=== PATIENT | male | born 1990 | race Caucasian/White ===

== ENCOUNTER 2018-06-16 12:00 | Emergency (ER) | payer SELFPAY ==
[~2018-06-16] VITALS: Ht 182.9 cm; Wt 103.4 kg
[~2018-06-16 12:00] MED LIST: ALB2T
[2018-06-16 12:15] VITALS: BP 130/93
[2018-06-16] MEDS: KETOROLAC TROMETH 60MG/2ML VIAL IM ONE (14:19)
== END 2018-06-16 14:51 | disposition home or self-care (01) ==
LOC: ER 12:00
CPT/HCPCS: 72100 ×2; 96372 ×2; 99283; J1885 ×2

== ENCOUNTER 2020-03-27 18:11 | Emergency (ER) | payer MEDICAID ==
[~2020-03-27] VITALS: Ht 185.4 cm; Wt 113.4 kg
[2020-03-27 18:26] VITALS: BP 141/81
[2020-03-27] MEDS ORDERED: KETOROLAC TROMETH 60MG/2ML VIAL IM ONE (20:15)
== END 2020-03-27 21:14 | disposition home or self-care (01) ==
LOC: ER 18:11
DX: S06.0X0A Concussion without loss of consciousness, initial encounter (principal); W22.8XXA Striking against or struck by other objects, initial encounter; Y93.89 Activity, other specified; Y92.89 Other specified places as the place of occurrence of the external cause; Y99.8 Other external cause status
CPT/HCPCS: 70450; 72125; 96372; 99285; J1885

== ENCOUNTER 2021-05-15 15:56 | Emergency (ER) | payer MEDICAID, OTHER ==
[~2021-05-15] VITALS: Ht 177.8 cm; Wt 95.3 kg
[2021-05-15] MEDS ORDERED: dilTIAZem 25 MG/5 ML VIAL IV ONE ×2 (16:00→16:15)
[2021-05-15] MEDS ORDERED: SODIUM CHLORIDE 0.9% 1,000 ML IV ONE ×2 (16:15)
[2021-05-15 16:41] LABS: Basophils # (auto) 0 10 ^3/uL (0-0.2); Basophils % (auto) 0.3 % (0.0-2.0); Eosinophils # (auto) 0.2 10 ^3/uL (0-0.8); Eosinophils % (auto) 1.9 % (0.0-7.0); Hematocrit 46.4 % (41.0-53.0); Hemoglobin 15.1 g/dL (13.5-17.5); Lymphocytes # (auto) 1.5 10 ^3/uL (0.4-5.4); Mean Corpuscular Hemoglobin 28.7 pg (28.0-32.0); Mean Corpuscular Hgb Conc. 32.5 g/dL (32.0-36.0); Mean Corpuscular Volume 88.2 fL (80.0-100.0); Monocytes # (auto) 0.7 10 ^3/uL (0-1.3); Monocytes % (auto) 6.4 % (0.0-12.0); Neutrophils # (auto) 8.3 10 ^3/uL (1.6-8.6); Neutrophils % (auto) 77.4 % (37.0-80.0); Red Blood Cells 5.26 10^6/uL (4.5-5.90); Red Cell Distribution Width 13.3 % (11.8-14.3); White Blood Cell 10.7 10^3/uL (4.4-10.8)
[2021-05-15 17:05] LABS: Albumin 3.9 g/dL (3.4-5.0); Calcium 8.5 mg/dL (8.5-10.1); Potassium 3.5 mmol/L (3.5-5.1)
[2021-05-15 17:11] LABS: Bilirubin, Total 0.3 mg/dL (0.2-1.0); Total Protein 7.9 g/dL (6.4-8.2)
[2021-05-15] MEDS ORDERED: dilTIAZem 125mg/125ml BAG KIT 125 ML IV ONE (17:30)
[2021-05-15 18:36] LABS: Urine Bacteria NONE SEEN /hpf (None Seen); Urine Blood Negative /uL (Negative); Urine Specific Gravity 1.007 (1.001-1.035); Urine WBC 1 /hpf (0 - 3)
[2021-05-15 21:00] VITALS: BP 131/69
== END 2021-05-15 17:17 | disposition short-term general hospital (02) ==
LOC: ER 15:56 → EDBD 15:56 → ER 17:17
DX: I48.91 Unspecified atrial fibrillation (principal); F17.210 Nicotine dependence, cigarettes, uncomplicated; F12.10 Cannabis abuse, uncomplicated; Z20.822 Contact with and (suspected) exposure to COVID-19
CPT/HCPCS: 36415; 70450; 71045; 80053; 81001; 84484; 85025; 87426; 93005; 96361; 96365; 96376; 99291; J7030